=== PATIENT | female | born 1995 | race Caucasian/White ===

== ENCOUNTER 2023-01-27 10:24 | Day surgery (SDC) | payer SELFPAY ==
[~2023-01-27] VITALS: Ht 162.6 cm; Wt 52.2 kg
[2023-01-27] MEDS ORDERED: IBUPROFEN600 MG PO (11:05)
[2023-01-27] MEDS ORDERED: EMERGEN C VITAM (11:06)
[2023-01-27] MEDS ORDERED: ZPAK PO (12:52)
[2023-01-27 14:57] VITALS: BP 104/72
== END 2023-01-27 15:10 | disposition home or self-care (01) | DRG 156 ==
LOC: ORM 10:24
PROVIDERS: ATTEND Plastic Surgery
PROC: 0NSBXZZ Reposition Nasal Bone, External Approach (ICD-10-PCS; principal; 2023-01-27)
DX: S02.2XXA Fracture of nasal bones, initial encounter for closed fracture (principal); W20.8XXA Other cause of strike by thrown, projected or falling object, initial encounter; Y93.B9 Activity, other involving muscle strengthening exercises; Y92.39 Other specified sports and athletic area as the place of occurrence of the external cause
CPT/HCPCS: J0131